=== PATIENT | female | born 1965 | race Caucasian/White ===

== ENCOUNTER 2019-03-02 08:27 | Emergency (ER) | payer BC ==
[2019-03-02 08:36] VITALS: BP 140/86
--- NOTE | 2019-03-02 08:49 | UC ---
Skin Complaint HPI - HPI Summary HPI Summary: Patient presents to urgent care with 3 days of burning rash under her left lateral breast. Patient states it's slightly tender to touch. Patient states there is nothing drainage from it. Patient also states her left scapula feels a little achy. Patient states she started a new diagnosis as routine and thought this was related to that. Patient states she had a change her bra because it was rubbing on sore. No fevers or chills. States she did feel warm last night. No nausea vomiting or diarrhea. Patient with history of similar. Patient does report she gets cold sores. Patient has been put hydrocortisone cream on it is mildly itchy. Patient without history of similar. Patient is not otherwise immunocompromised. Patient's medications reviewed this visit. Patient states she is not . - History of Current Complaint Chief Complaint: UCSkin Time Seen by Provider: 03/02/19 08:48 Stated Complaint: RASH Hx Obtained From: Patient Hx Last Menstrual Period: 06/27/15 ?: No Onset/Duration: Sudden Onset Onset Severity: Mild Current Severity: Mild Pain Intensity: 2 - Allergy/Home Medications Allergies/Adverse Reactions: Allergies Allergy/AdvReac Type Severity Reaction Status Date / Time No Known Allergies Allergy Verified 03/02/19 08:35 Home Medications: Home Medications [place]-3 Fatty Acids/Fish Oil [Fish Oil 1,000 mg Softgel] 1 each PO DAILY [History Confirmed 03/02/19] PMH/Surg Hx/FS Hx/Imm Hx Previously Healthy: Yes - Surgical History Surgical History: Yes Surgery Procedure, Year, and Place: Laparoscopy, D&C - Family History Known Family History: Positive: Non-Contributory - Social History Occupation: Employed Full-time Lives: With Family Alcohol Use: None Substance Use Type: None Smoking Status (MU): Never Smoked Tobacco Review of Systems All Other Systems Reviewed And Are Negative: Yes Constitutional: Positive: Other - felt warm last night Skin: Positive: Rash Is Patient Immunocompromised?: No Physical Exam - Summary Physical Exam Summary: Vital Signs Reviewed: Yes A+Ox3, no distress Eyes: Conjunctiva Clear ENT: Hearing grossly normal mmmoist Neck: Positive: Supple Respiratory: Positive: No respiratory distress, No accessory muscle use + CTA throughout no w/r Cardiovascular: RRR nl s1, s2 no m/r CBT <2 sec abd soft + BS nt/nd no guarding, no distension Musculoskeletal Exam: SIMPSON x 4 without difficulty Strength Intact, ROM Intact Neurological: Positive: Alert, + sensation throughout Psychological: Positive: Normal Response To Family Skin: Positive: left lateral inferior margin of breast pt with cluser of vesicular appearing lesions on erythematous base . no drainage mild TTP Pt reports very minimal skin sensivity inferior margin of left scapula no lesions no lesions noted elsewhere Triage Information Reviewed: Yes Vital Signs: Initial Vital Signs Temp 98.4 F 03/02/19 08:31 Pulse 67 03/02/19 08:31 Resp 16 03/02/19 08:31 BP 140/86 03/02/19 08:31 Pulse Ox 98 03/02/19 08:31 Course/Dx - Course Course Of Treatment: Patient presents with acute onset cluster vesicular lesions on her left anterolateral chest on the left breast. Patient states mildly tender to palpation. Patient also reports some increased sensitivity along to her less intermittent infrascapular region. Patient states she felt warm but no documented fevers or chills. No nausea vomiting. On exam vital signs show slightly elevated blood pressure likely related to patient's condition. Recommend follow up PCP. Patient also with cluster vesicular type lesions that are mildly increased tenderness. Do not. [place] appearance. Do not. He bacterial. Discussed with patient length. Will start patient on Valtrex as well as prednisone. No signs and symptoms. Avoid contact a lesions with immunocomprmised or medically frail. Return precautions discussed. Patient comfortable in agreement with plan. - Diagnoses Provider Diagnosis: Herpes zoster Discharge - Sign-Out/Discharge Documenting (check all that apply): Patient Departure All imaging exams completed and their final reports reviewed: No Studies - Discharge Plan Condition: Stable Disposition: HOME Prescriptions: predniSONE TAB* [Deltasone 20 MG TAB*] 20 mg PO DAILY #13 tab ValACYclovir (*) [Valtrex 1 GM(*)] 1 gm PO TID #21 tab Patient Education Materials: Shingles (ED) Referrals: Geovany Guan NP [Primary Care Provider] - Additional Instructions: -Take prednisone EXACTLY as prescribed until gone -Take Valtrex (anti-viral medication) as prescribe - Okay to take Tylenol every 6 hours as needed - Keep your lesions covered if you are around people receiving chemotherapy, women and infants until your lesions have resolved - Your lesions may continue to develop over the next 7-10 days - this is normal. They should not spread to other areas of your body Contact your doctor or return with questions or concerns - Billing Disposition and Condition Condition: STABLE Disposition: Home
== END 2019-03-02 09:05 | disposition home or self-care (01) ==
LOC: UCEAST 08:27
DX: B02.9 Zoster without complications (principal)
CPT/HCPCS: 99212; G0463